=== PATIENT | male | born 2000 | race Caucasian/White ===

== ENCOUNTER 2023-06-27 16:12 | Inpatient (IN) | payer MEDICAID ==
[~2023-06-27] VITALS: Ht 177.8 cm; Wt 53.1 kg
[2023-06-27] MEDS ORDERED: DiphenhydrAMINE HCL 50 MG/ML VIAL IM ONE (18:00)
[2023-06-27] MEDS ORDERED: LORazepam 2 MG/ML VIAL IM ONE (18:00)
[2023-06-27] MEDS ORDERED: HALOPERIDOL LACTATE 5 MG/ML VIAL IM ONE (18:00)
[2023-06-27] MEDS ORDERED: ZOLPIDEM TARTRATE 10 MG TABLET PO PRN (18:00)
[2023-06-27 18:57] LABS: BASOPHILS % (AUTO) 0.7 % (0.0-2.0); EOSINOPHILS % (AUTO) 1.2 % (1.0-6.0); HEMATOCRIT 38.4 % (41-53); HEMOGLOBIN 12.8 g/dL (13.5-17.5); LYMPHOCYTES % (AUTO) 45.5 % (22.0-44.0); MEAN CORPUSCULAR HEMOGLOBIN 30.7 pg (26.0-34.0); MEAN CORPUSCULAR HGB CONC 33.4 G/dL (31.0-37.0); MEAN CORPUSCULAR VOLUME 92 fL (80-100); MONOCYTES # (AUTO) 0.5 K/uL (0.1-1.0); MONOCYTES % (AUTO) 7.8 % (2.0-9.0); NEUTROPHILS % (AUTO) 44.8 % (40.0-70.0); PLATELET COUNT (AUTO) 372 K/uL (150-450); RED BLOOD CELL COUNT(AUTO) 4.17 MIL/uL (4.50-5.90); RED CELL DISTRIBUTION WIDTH 12.3 % (11.5-14.5); WHITE BLOOD COUNT (AUTO) 6.6 K/uL (4.5-11.0)
[2023-06-27 19:06] LABS: ANION GAP 8 mmol/L (8-16); CALCIUM, TOTAL 9.1 mg/dL (8.8-10.5); CARBON DIOXIDE 30 mmol/L (22-29); CHLORIDE 102 mmol/L (98-107); CREATININE 0.78 mg/dL (0.60-1.30); GLOMERULAR FILTR. RATE CALC > 60 mL/min (>60); GLUCOSE,RANDOM 90 mg/dL (70-110); POTASSIUM 3.5 mmol/L (3.5-5.1); SODIUM SERUM 140 mmol/L (136-145); UREA NITROGEN, BLOOD 12 mg/dL (7-18)
[2023-06-27 19:12] LABS: ALANINE AMINOTRANSFERASE 26 U/L (12-78); ALBUMIN 3.8 g/dL (3.4-5.0); ALCOHOL, BLOOD (SERUM) < 3 mg/dL (0-10); ALKALINE PHOSPHATASE 49 U/L (46-116); ASPARTATE AMINOTRANSFERASE 17 U/L (15-37); BILIRUBIN,TOTAL 0.2 mg/dL (0.1-1.0); TOTAL PROTEIN, SERUM 7.2 g/dL (6.4-8.2)
[2023-06-28 02:04] LABS: COVID AG,FIA SOURCE NASAL SWAB
[2023-06-28 02:28] LABS: SARS-COV2 (COVID) ANTIGEN,FIA Negative (Negative)
[2023-06-28 11:03] VITALS: BP 121/68; PULSE 102; RESP 18; TEMP 97.2; O2SAT 100
[2023-06-28] MEDS ORDERED: GuaiFENesin/D-METHORPHAN [SUGAR-FREE] 200-20MG/10 ML SYRUP UDCUP PO PRN (11:15)
[2023-06-28] MEDS ORDERED: ACETAMINOPHEN 325 MG TABLET PO PRN (11:15)
[2023-06-28] MEDS ORDERED: MAG HYDROX/ALUMINUM HYD/SIMETH ES 30 ML SUSPENSION UDCUP PO PRN (11:15)
[2023-06-28] MEDS ORDERED: MAGNESIUM HYDROXIDE SUSPENSION 30 ML UDCUP PO PRN (11:15)
[2023-06-28] MEDS ORDERED: LOPERAMIDE HCL 2 MG CAPSULE PO PRN (11:15)
[2023-06-28] MEDS ORDERED: PROMETHAZINE HCL 25 MG TABLET PO PRN (11:15)
[2023-06-28] MEDS ORDERED: TUBERCULIN, PURIFIED PROTEIN DERIVATIVE 5 TU/0.1 ML SYRINGE ID ONE (11:15)
[2023-06-28] MEDS: THIAMINE 100 MG TABLET PO SCH (16:33)
[2023-06-28 21:10] VITALS: RESP 18
[2023-06-28] MEDS: MELATONIN 5 MG TABLET PO SCH (21:27)
[2023-06-28] MEDS: OLANZapine 5 MG RAPDIS TABLET PO SCH (21:28)
[2023-06-29 07:01] LABS: HEMOGLOBIN A1C 5.1 % (3.8-5.6)
[2023-06-29 07:05] LABS: FREE T4 (FREE THYROXINE) 1.11 ng/dL (0.76-1.46); THYROID STIMULATING HORMONE 2.46 uIU/mL (0.36-3.74)
[2023-06-29] MEDS: OMEGA-3/DHA/EPA/FISH OIL 1,000 MG CAPSULE PO SCH (08:15)
[2023-06-29] MEDS: FOLIC ACID 1 MG TABLET PO SCH (08:15)
[2023-06-29] MEDS: THIAMINE 100 MG TABLET PO SCH ×2 (08:15→16:31)
[2023-06-29] MEDS: NALTREXONE HCL 50 MG TABLET PO SCH (08:15)
[2023-06-29] MEDS: MULTIVITAMINS WITH MINERALS, THERAPEUTIC TABLET PO SCH (08:16)
[2023-06-29 08:43] VITALS: BP 146/76; PULSE 102; RESP 16; TEMP 98; O2SAT 95
[2023-06-29] MEDS ORDERED: BENZTROPINE MESYLATE 2 MG TABLET PO ONE (13:30)
[2023-06-29] MEDS ORDERED: DiphenhydrAMINE HCL 50 MG/ML VIAL IM ONE (13:30)
[2023-06-29] MEDS: BENZTROPINE MESYLATE 2 MG TABLET PO SCH (16:31)
[2023-06-29] MEDS: OLANZapine 5 MG RAPDIS TABLET PO SCH (21:19)
[2023-06-29] MEDS: MELATONIN 5 MG TABLET PO SCH (21:19)
[2023-06-29 21:27] VITALS: RESP 18
[2023-06-30 08:26] LABS: CHOL/HDL RATIO 2.8 (4.2-7.3); MAGNESIUM 2.5 mg/dL (1.80-2.40)
[2023-06-30 09:05] VITALS: BP 163/74; PULSE 79; RESP 18; TEMP 97.6; O2SAT 99
[2023-06-30] MEDS: MULTIVITAMINS WITH MINERALS, THERAPEUTIC TABLET PO SCH (09:06)
[2023-06-30] MEDS: THIAMINE 100 MG TABLET PO SCH ×2 (09:07→16:30)
[2023-06-30] MEDS: FOLIC ACID 1 MG TABLET PO SCH (09:07)
[2023-06-30] MEDS: NALTREXONE HCL 50 MG TABLET PO SCH (09:07)
[2023-06-30] MEDS: OMEGA-3/DHA/EPA/FISH OIL 1,000 MG CAPSULE PO SCH (09:07)
[2023-06-30] MEDS: BENZTROPINE MESYLATE 2 MG TABLET PO SCH ×3 (09:08→16:30)
[2023-06-30] MEDS: OLANZapine 5 MG RAPDIS TABLET PO PRN ×2 (09:22→16:29)
[2023-06-30] MEDS: LORazepam 2 MG TABLET PO PRN ×2 (09:22→16:29)
[2023-06-30] MEDS: MELATONIN 5 MG TABLET PO SCH (20:31)
[2023-06-30] MEDS: OLANZapine 10 MG RAPDIS TABLET PO SCH (20:32)
[2023-06-30 22:07] VITALS: BP 145/78; PULSE 82; RESP 18; TEMP 97.6
[2023-07-01] MEDS: HydrOXYzine PAMOATE 50 MG CAPSULE PO PRN (00:17)
[2023-07-01] MEDS: LORazepam 2 MG TABLET PO PRN (00:17)
[2023-07-01] MEDS: OMEGA-3/DHA/EPA/FISH OIL 1,000 MG CAPSULE PO SCH (08:28)
[2023-07-01] MEDS: BENZTROPINE MESYLATE 2 MG TABLET PO SCH ×3 (08:28→18:20)
[2023-07-01] MEDS: THIAMINE 100 MG TABLET PO SCH ×2 (08:28→18:20)
[2023-07-01] MEDS: NALTREXONE HCL 50 MG TABLET PO SCH (08:28)
[2023-07-01] MEDS: FOLIC ACID 1 MG TABLET PO SCH (08:29)
[2023-07-01] MEDS: MULTIVITAMINS WITH MINERALS, THERAPEUTIC TABLET PO SCH (08:30)
[2023-07-01] MEDS: OLANZapine 5 MG RAPDIS TABLET PO PRN ×2 (08:30→12:25)
[2023-07-01 09:06] VITALS: BP 122/74; PULSE 88; RESP 18; TEMP 97.6; O2SAT 97
[2023-07-01] MEDS: OLANZapine 10 MG RAPDIS TABLET PO SCH (20:02)
[2023-07-01 20:18] VITALS: BP 126/71; PULSE 98; RESP 20; TEMP 98.2; O2SAT 100
[2023-07-01] MEDS: MELATONIN 5 MG TABLET PO SCH (20:20)
[2023-07-02] VITALS (10 sets, daily range): BP systolic 98–117; BP diastolic 48–72; PULSE 65–82; RESP 17–18; TEMP 96.2–98.7; O2SAT 95–100
[2023-07-02] MEDS: LORazepam 2 MG TABLET PO PRN ×2 (08:51→13:34)
[2023-07-02] MEDS: MULTIVITAMINS WITH MINERALS, THERAPEUTIC TABLET PO SCH (08:51)
[2023-07-02] MEDS: FOLIC ACID 1 MG TABLET PO SCH (08:52)
[2023-07-02] MEDS: OMEGA-3/DHA/EPA/FISH OIL 1,000 MG CAPSULE PO SCH (08:56)
[2023-07-02] MEDS: NALTREXONE HCL 50 MG TABLET PO SCH (08:57)
[2023-07-02] MEDS: THIAMINE 100 MG TABLET PO SCH ×2 (08:58→17:00)
[2023-07-02] MEDS: ATOMOXETINE HCL 25 MG CAPSULE PO SCH (08:58)
[2023-07-02] MEDS: BENZTROPINE MESYLATE 2 MG TABLET PO SCH ×3 (08:58→17:00)
[2023-07-02] MEDS: OLANZapine 5 MG RAPDIS TABLET PO PRN (12:19)
[2023-07-02] MEDS: HydrOXYzine PAMOATE 50 MG CAPSULE PO PRN (15:29)
[2023-07-02] MEDS ORDERED: LORazepam 2 MG/ML VIAL ONE (16:44)
[2023-07-02] MEDS ORDERED: HALOPERIDOL LACTATE 5 MG/ML VIAL ONE (16:45)
[2023-07-02] MEDS ORDERED: LORazepam 2 MG/ML VIAL IM ONE (16:45)
[2023-07-02] MEDS ORDERED: DiphenhydrAMINE HCL 50 MG/ML VIAL IM ONE (16:45)
[2023-07-02] MEDS ORDERED: DiphenhydrAMINE HCL 50 MG/ML VIAL ONE (16:45)
[2023-07-02] MEDS ORDERED: HALOPERIDOL LACTATE 5 MG/ML VIAL IM ONE (16:45)
[2023-07-02] MEDS: RisperiDONE 2 MG TABLET PO SCH (17:00)
[2023-07-02] MEDS: OLANZapine 10 MG RAPDIS TABLET PO SCH (21:00)
[2023-07-02] MEDS: MELATONIN 5 MG TABLET PO SCH (21:00)
[2023-07-03] MEDS: LORazepam 2 MG TABLET PO PRN (04:53)
[2023-07-03] MEDS: HydrOXYzine PAMOATE 50 MG CAPSULE PO PRN (04:53)
[2023-07-03] MEDS: OLANZapine 5 MG RAPDIS TABLET PO PRN ×2 (04:55→15:59)
[2023-07-03 08:14] VITALS: RESP 18; TEMP 97.8
[2023-07-03 09:45] VITALS: BP 110/65; PULSE 65; RESP 18; TEMP 97.8; O2SAT 100
[2023-07-03] MEDS: FOLIC ACID 1 MG TABLET PO SCH (09:57)
[2023-07-03] MEDS: NALTREXONE HCL 50 MG TABLET PO SCH (09:57)
[2023-07-03] MEDS: OMEGA-3/DHA/EPA/FISH OIL 1,000 MG CAPSULE PO SCH (09:58)
[2023-07-03] MEDS: BENZTROPINE MESYLATE 2 MG TABLET PO SCH ×3 (09:58→17:56)
[2023-07-03] MEDS: ATOMOXETINE HCL 25 MG CAPSULE PO SCH (09:58)
[2023-07-03] MEDS: THIAMINE 100 MG TABLET PO SCH ×2 (09:59→17:56)
[2023-07-03] MEDS: MULTIVITAMINS WITH MINERALS, THERAPEUTIC TABLET PO SCH (10:00)
[2023-07-03] MEDS: RisperiDONE 2 MG TABLET PO SCH ×2 (10:00→17:56)
[2023-07-03] MEDS: OLANZapine 10 MG RAPDIS TABLET PO SCH (20:21)
[2023-07-03] MEDS: MELATONIN 5 MG TABLET PO SCH (20:21)
[2023-07-03 20:58] VITALS: RESP 18
[2023-07-04] MEDS: BENZTROPINE MESYLATE 2 MG TABLET PO SCH ×3 (08:11→17:29)
[2023-07-04] MEDS: FOLIC ACID 1 MG TABLET PO SCH (08:11)
[2023-07-04] MEDS: RisperiDONE 2 MG TABLET PO SCH ×2 (08:11→17:29)
[2023-07-04] MEDS: NALTREXONE HCL 50 MG TABLET PO SCH (08:11)
[2023-07-04] MEDS: ATOMOXETINE HCL 25 MG CAPSULE PO SCH (08:11)
[2023-07-04] MEDS: OMEGA-3/DHA/EPA/FISH OIL 1,000 MG CAPSULE PO SCH (08:11)
[2023-07-04] MEDS: MULTIVITAMINS WITH MINERALS, THERAPEUTIC TABLET PO SCH (08:11)
[2023-07-04] MEDS: THIAMINE 100 MG TABLET PO SCH ×2 (08:11→17:29)
[2023-07-04 14:47] VITALS: BP 106/67; PULSE 65; RESP 18; TEMP 98; O2SAT 97
[2023-07-04] MEDS: MELATONIN 5 MG TABLET PO SCH (20:20)
[2023-07-04] MEDS: OLANZapine 10 MG RAPDIS TABLET PO SCH (20:20)
[2023-07-04 21:11] VITALS: BP 107/71; PULSE 72; RESP 18; TEMP 97.8
[2023-07-05 08:00] VITALS: BP 110/70; PULSE 84; RESP 18; TEMP 98; O2SAT 100
[2023-07-05] MEDS: NALTREXONE HCL 50 MG TABLET PO SCH (08:20)
[2023-07-05] MEDS: MULTIVITAMINS WITH MINERALS, THERAPEUTIC TABLET PO SCH (08:20)
[2023-07-05] MEDS: FOLIC ACID 1 MG TABLET PO SCH (08:20)
[2023-07-05] MEDS: BENZTROPINE MESYLATE 2 MG TABLET PO SCH (08:20)
[2023-07-05] MEDS: OMEGA-3/DHA/EPA/FISH OIL 1,000 MG CAPSULE PO SCH (08:20)
[2023-07-05] MEDS: THIAMINE 100 MG TABLET PO SCH ×2 (08:20→17:22)
[2023-07-05] MEDS ORDERED: ATOMOXETINE HCL 40 MG CAPSULE PO SCH (09:00)
[2023-07-05] MEDS ORDERED: NALT50TA PO (09:47)
[2023-07-05] MEDS ORDERED: MELA5TAB40 PO (09:47)
[2023-07-05] MEDS ORDERED: OLAN10TA26 PO (09:47)
[2023-07-05] MEDS: OLANZapine 10 MG RAPDIS TABLET PO SCH (20:14)
[2023-07-05] MEDS: MELATONIN 5 MG TABLET PO SCH (20:14)
[2023-07-05 20:59] VITALS: RESP 18; TEMP 98.2
[2023-07-06 08:23] VITALS: BP 104/68; PULSE 80; RESP 18; TEMP 98; O2SAT 99
[2023-07-06] MEDS: THIAMINE 100 MG TABLET PO SCH (09:09)
[2023-07-06] MEDS: OMEGA-3/DHA/EPA/FISH OIL 1,000 MG CAPSULE PO SCH (09:09)
[2023-07-06] MEDS: MULTIVITAMINS WITH MINERALS, THERAPEUTIC TABLET PO SCH (09:09)
[2023-07-06] MEDS: NALTREXONE HCL 50 MG TABLET PO SCH (09:10)
[2023-07-06] MEDS: FOLIC ACID 1 MG TABLET PO SCH (09:10)
== END 2023-07-06 14:49 | disposition left against medical advice (07) | DRG 750 ==
LOC: EMS 16:15 → 3EX 06-28 08:57 → 3EC 07-03 06:02
PROVIDERS: ADMIT Psychiatry & Neurology Psychiatry; ATTEND Psychiatry & Neurology Psychiatry
DX: F20.0 Paranoid schizophrenia (principal); Z91.148 Patient's other noncompliance with medication regimen for other reason; F15.10 Other stimulant abuse, uncomplicated; F17.210 Nicotine dependence, cigarettes, uncomplicated; J44.9 Chronic obstructive pulmonary disease, unspecified; Z53.21 Procedure and treatment not carried out due to patient leaving prior to being seen by health care provider; Z20.822 Contact with and (suspected) exposure to COVID-19
CPT/HCPCS: 70140; 70450; 80053; 80061; 83036; 83735; 84100; 84439; 84443; 85025; 86592; 99291; G0378; G0480; J1200; J1630; J2060; Q9967